=== PATIENT | female | born 1935 | race African-American/Black ===

== ENCOUNTER → 2016-11-17 | Outpatient (CLI) | payer MEDICARE, OTHER ==
[~2016-11-17] MED LIST: ARICEPT10 MG PO; BONIVA150 MG PO; CALCIUM CITRATE1 TA4 PO; CELEXA 20MG20 MG/TAB PO; CLEOCIN HCL300 MG PO; FOLIC ACID 11 MG/TA1 PO; LAMICTAL150 MG PO; MULTI VITAMINS1 TAB PO; NORCOELIX; NORVASC 5MG5 MG/TAB PO; PLAVIX 75MG TAB75 MG PO; SYNTHROID 0.10.15 MG PO; VITAMIND3 5000 PO; ZOCOR 20MG20 MG PO
== END ==
LOC: BHSO 11:44
DX: F41.1 Generalized anxiety disorder (principal)

== ENCOUNTER → 2017-03-23 | Outpatient (CLI) | payer MEDICARE, OTHER | LOC: BHSO 14:17 | DX: F41.1 Generalized anxiety disorder (principal) ==

== ENCOUNTER → 2017-06-15 | Outpatient (CLI) | payer MEDICARE, OTHER | LOC: BHSO 11:49 | DX: F33.1 Major depressive disorder, recurrent, moderate (principal) ==

== ENCOUNTER → 2017-08-31 | Outpatient (CLI) | payer MEDICARE, OTHER | LOC: BHSO 11:43 | DX: F33.1 Major depressive disorder, recurrent, moderate (principal) | CPT/HCPCS: G0463 ==

== ENCOUNTER → 2018-02-01 | Outpatient (CLI) | payer MEDICARE, OTHER | LOC: BHSO 10:15 | DX: F33.42 Major depressive disorder, recurrent, in full remission (principal) | CPT/HCPCS: G0463 ==